=== PATIENT | male | born 1945 | race Caucasian/White ===

== ENCOUNTER 2019-02-08 12:55 | Emergency (ER) | payer OTHER ==
[~2019-02-08] VITALS: Ht 172.7 cm; Wt 77.3 kg
[~2019-02-08 12:55] MED LIST: ASPI-903 PO; FINA5TAB4 PO; LOSA25TA12 PO; OLME20TA20 PO; SIMV5TAB14 PO; TAMS-14 PO
[2019-02-08] MEDS ORDERED: ONDANSETRON 4 MG INJ IV STA (13:05)
[2019-02-08] MEDS ORDERED: SODIUM CHLORIDE 0.9% 1L BAG IV* STA (13:05)
[2019-02-08 13:07] VITALS: Ht 172.7 cm; Wt 77.3 kg
[2019-02-08] MEDS ORDERED: VANCOMYCIN 1 GM (PMX) 250 ML IVPB STA (13:16)
[2019-02-08] MEDS ORDERED: PIPER-TAZO 3.375 GM IV (PMX) 100 ML IVPB STA (13:16)
[2019-02-08] MEDS ORDERED: ACETAMINOPHEN 325 MG TAB PO STA (13:16)
[2019-02-08] MEDS ORDERED: FAMOTIDINE 20 MG INJ IV ONE (13:30)
--- NOTE | 2019-02-08 13:53 | ERD ---
ER Documentation Chief Complaint Chief Complaint ap, nausea/vomiting, fever starting today HPI This is a 73-year-old male with a past medical history of a cerebrovascular accident with right-sided weakness of his upper and lower extremities at baseline. The patient had awoke this morning stating he was experiencing abdominal pain. He stated the pain was a cramping-like sensation in the lower abdomen. He felt nauseous and had an episode of nonbloody nonbilious emesis. His indicated he had a coughing choking and gagging episode afterwards and she was concern for aspiration pneumonia as this is happened in the past. She stated the patient felt warm to the touch. No antipyretics were given. The patient did not complain of a headache but did appear slightly more confused after the emesis and therefore his phoned 911 if she became concerned. She stated after the emesis the patient stopped talking became more confused and flailing his left arm. The patient denies any recent hospitalizations. ROS All systems reviewed and are negative except as per history of present illness. Medications Home Meds Reported Medications Tamsulosin Hcl* (Flomax*) 0.4 Mg Cap.er.24h, 0.4 MG PO DAILY, CAP 01/02/15 Aspirin* (Aspirin* Chew) 81 Mg Tab.chew, 81 MG PO twice a week, TAB.CHEW 01/02/15 Simvastatin* (Simvastatin*) 5 Mg Tablet, PO HS, TAB 01/02/15 Losartan Potassium* (Losartan Potassium*) 25 Mg Tablet, PO BID, TAB 01/02/15 Finasteride* (Finasteride*) 5 Mg Tablet, PO DAILY, TAB 01/02/15 Olmesartan Medoxomil (Benicar) 20 Mg Tablet, 20 MG PO DAILY, TAB 01/02/15 Allergies Allergies: Coded Allergies: No Known Allergy (Unverified , 01/02/15) PMhx/Soc History of Surgery: Yes (oral surgery) Anesthesia Reaction: No Hx Neurological Disorder: No Hx Respiratory Disorders: No Hx Cardiac Disorders: Yes (htn) Hx Psychiatric Problems: No Hx Miscellaneous Medical Probl: Yes (stroke) Hx Alcohol Use: Yes (occassional) Hx Substance Use: No Hx Tobacco Use: No Smoking Status: Never smoker Physical Exam Vitals Vital Signs Date Temp Pulse Resp B/P (MAP) Pulse Ox O2 O2 Flow FiO2 Time Delivery Rate 02/08/19 99.1 98 24 108/58 98 Nasal 2.0 15:56 (75) Cannula 02/08/19 96 22 118/75 95 Nasal 15:02 (89) Cannula 02/08/19 Nasal 2 13:33 Cannula 02/08/19 100.3 13:29 02/08/19 Nasal 3 13:26 Cannula 02/08/19 100.3 89 20 157/86 94 13:07 (109) Physical Exam Constitutional:Well-developed. Well-nourished. HEENT:Normocephalic. Atraumatic.Pupils were equal round reactive to light. Dry mucous membranes.No tonsillar exudates. Neck: No nuchal rigidity. No lymphadenopathy. No posterior cervical spine tenderness or step-offs. Respiratory: Not using accessory muscles of respiration.Lungs were clear to auscultation bilaterally. No rhonchi. No rales. No wheezing. Cardiovascular: Tachycardic with regular rhythm.No murmurs. No rubs were appreciated.S1, S2 normal. Distal pulses are palpable 2+ bilaterally. GI: Abdomen was soft. No guarding and no reproducible abdominal tenderness. Non Distended. No pulsatile abdominal masses or bruits. No rebound. No guarding. Bowel sounds were present and normal. Muscle skeletal: Full range of motion of the left upper and lower extremity. Muscular strength 2 out of 5 in the right upper and lower extremity. Skin: Warm to the touch peer no petechia, no purpura. No lesions on the palms or the soles of the feet. No maculopapular rash. NEURO: Patient was alert, awake, to person but would not follow verbal command..No facial droop. Gait not observed as patient was too weak to ambulate.Patient was mumbling. no focal neurological deficits. Result Diagram: 02/08/19 1314 02/08/19 1314 Results 24 hrs Laboratory Tests Test 02/08/19 13:14 02/08/19 13:15 02/08/19 13:50 02/08/19 15:43 White Blood Count 11.0 10^3/ul Red Blood Count 4.13 10^6/ul Hemoglobin 12.6 g/dl Hematocrit 40.0 % Mean Corpuscular 96.9 fl Volume Mean Corpuscular 30.5 pg Hemoglobin Mean Corpuscular 31.5 g/dl Hemoglobin Concent Red Cell 13.5 % Distribution Width Platelet Count 188 10^3/UL Mean Platelet 9.1 fl Volume Immature 0.500 % Granulocytes % Neutrophils % 93.4 % Lymphocytes % 4.4 % Monocytes % 1.0 % Eosinophils % 0.5 % Basophils % 0.2 % Nucleated Red 0.0 /100WBC Blood Cells % Immature 0.050 10^3/ul Granulocytes # Neutrophils # 10.3 10^3/ul Lymphocytes # 0.5 10^3/ul Monocytes # 0.1 10^3/ul Eosinophils # 0.1 10^3/ul Basophils # 0.0 10^3/ul Nucleated Red 0.0 10^3/ul Blood Cells # Sodium Level 144 mmol/L Potassium Level 4.8 mmol/L Chloride Level 111 mmol/L Carbon Dioxide 21 mmol/L Level Anion Gap 12 Blood Urea 22 mg/dl Nitrogen Creatinine 1.56 mg/dl Est Glomerular mL/min Filtrat Rate mL/min Glucose Level 102 mg/dl Calcium Level 10.0 mg/dl Total Bilirubin 0.6 mg/dl Direct Bilirubin 0.60 mg/dl Indirect Bilirubin 0.0 mg/dl Aspartate Amino 41 IU/L Transf (AST/SGOT) Alanine 19 IU/L Aminotransferase ( ALT/SGPT) Alkaline 89 IU/L Phosphatase Troponin I < 0.012 ng/ml B-Type Natriuretic 80 PG/ML Peptide Total Protein 7.6 g/dl Albumin 4.4 g/dl Globulin 3.20 g/dl Albumin/Globulin 1.37 Ratio Amylase Level 207 U/L Lipase 186 U/L POC Venous Lactate 2.3 mmol/L 1.3 mmol/L Prothrombin Time 12.9 Sec Prothrombin Time 1.0 Ratio INR International 0.96 Normalized Ratio Activated 22.[address] Time Test 02/08/19 16:00 Urine Color YELLOW Urine Clarity CLEAR Urine pH 5.0 Urine Specific 1.014 [place] Urine Ketones NEGATIVE mg/dL Urine Nitrite NEGATIVE mg/dL Urine Bilirubin NEGATIVE mg/dL Urine Urobilinogen NEGATIVE mg/dL Urine Leukocyte NEGATIVE Darlyn/ul Esterase Urine Microscopic 1 /HPF RBC Urine Microscopic 6 /HPF WBC Urine Hemoglobin 1+ mg/dL Urine Glucose NEGATIVE mg/dL Urine Total NEGATIVE mg/dl Protein Current Medications Medications Dose Sig/Loretta Start Time Status Last (Trade) Ordered Route PRN Stop Time Admin Dose Reason Admin Sodium 2,400 ml BOLUS OVER 2 02/08/19 DC 02/08/19 Chloride HOURS STAT 13:05 13:27 (NS) IV* 02/08/19 13:07 Ondansetron 4 mg ONCE STAT 02/08/19 DC 02/08/19 HCl (Zofran IV 13:05 13:27 Inj) 02/08/19 13:07 Famotidine 20 mg ONCE ONCE 02/08/19 DC 02/08/19 (Pepcid Iv) IV 13:30 13:27 02/08/19 13:31 650 mg ONCE STAT 02/08/19 DC 02/08/19 Acetaminophen PO 13:16 13:29 (Tylenol 02/08/19 13:18 Tab) Vancomycin 250 ml @ ONCE STAT 02/08/19 DC 02/08/19 HCl 125 mls/hr IVPB 13:16 14:02 02/08/19 15:15 Piperacillin 100 ml @ ONCE STAT 02/08/19 DC 02/08/19 Sod/ 200 mls/hr IVPB 13:16 13:26 Tazobactam 02/08/19 13:45 Sod Procedures/MDM This patient presented to the emergency department after he had an episode of emesis and abdominal pain. This patient presented to the emergency department with abdominal pain and was seen and evaluated by myself. My differential diagnosis included but was not limited to abdominal aortic aneurysm, ap pendicitis, pancreatitis, perforated peptic ulcer, perforated viscus, Boerhaave's syndrome or visceral pain such as diverticulitis, DKA, esophagitis, hepatitis or bowel obstruction. However on physical exam I did not appreciate any abdominal tenderness. The patient appeared more altered and therefore I did feel is necessary to obtain a CT scan of the patient's head which showed no intracerebral hemorrhage mass-effect or midline shift. Patient had no severe electrolyte abnormalities. The patient's liver enzymes were within normal limits. Amylase was slightly elevated at 207 and lipase was normal and my clinical suspicion was low for pancreatitis. Therefore do not feel is necessary to obtain a CT scan of the patient's head as I felt his abdominal discomfort and cramping likely was a result of a possible fever The patient was placed on a lunchroom monitor, continuous pulse oximetry, and IV access was established by nursing staff. The patient met Sirs criteria with a lactic acid of 2.6. Patient's infectious symptoms have not stabilized and the patient is at risk of rapid decompensation. The patient will be admitted for careful hydration, antibiotic therapy, and infectious source control. Severe Sepsis Assessment: Infectious Source: Aspiration pneumonia End organ damage indicated by: Lactate > 2.0 mmol/L [employer] Vegetable > 2.0 Severe Sepsis Managment: Blood Cultures X 2 before broad spectrum antibiotics initiated within 3 hours of recognition. 30 ml/kg NS bolus Completed Initial Lactate: 2.6 Repeat Lactate pending I considered further perfusion assessment with CVP measurement, SCVO2, bedside ultrasound volume assessment, passive leg raise, trial of further fluid bolus. And preceded with IV fluids 12 Lead EKG tracing ordered and reviewed by myself showed: Normal sinus rhythm of 90 bpm and no arrhythmia. [place] interval normal. QRS duration normal. No ST segment elevation No ST segment depression. No changes consistent with acute ischemia. Continue 1 view chest radiograph there is no infiltrates no pneumothorax or pleural effusions. The patient did not have a urinary tract infection. After receiving the above treatment the patient was now at his baseline mental status. He was alert awake oriented x3. He is not complaining of any abdominal discom fort. I did feel he was stable for transfer. I spoke with the [place] physician Dr. Buckner and the patient will be transferred for continuation of his care. Critical Care: Time: 85 minutes Treatments/Evaluations: Close monitoring and treatment of unstable vital signs, cardiorespiratory, and neurologic status, while maintaining tight balance of fluid, respiratory, and cardiac interventions. Time does not include performing any of the above billable procedures. Departure Diagnosis: Primary Impression: Nausea and vomiting Vomiting type: unspecified Vomiting Intractability: non-intractable Qualified Codes: R11.2 - Nausea with vomiting, unspecified Additional Impression: Sepsis Sepsis type: sepsis due to unspecified organism Qualified Codes: A41.9 - Sepsis, unspecified organism Condition: Serious JONATHON KILPATRICK MD Feb 08, 2019 13:53
[2019-02-08 19:25] VITALS: BP 95/48; PULSE 99; RESP 28
== END 2019-02-08 19:30 | disposition short-term general hospital (02) ==
LOC: E/R 12:55
DX: A41.9 Sepsis, unspecified organism (principal); I10 Essential (primary) hypertension; R51 Headache; Z79.82 Long term (current) use of aspirin; Z86.73 Personal history of transient ischemic attack (TIA), and cerebral infarction without residual deficits
CPT/HCPCS: 70450; 71045; 80053; 81001; 82150; 83605; 83690; 83880; 84484; 85025; 85610; 85730; 87040; 87086; 93005; J2405; J2543; J3370; J7030; 36415; 96374; 96375